=== PATIENT | male | born 1935 | race Caucasian/White ===

== ENCOUNTER → 2016-09-26 | Outpatient (CLI) | payer OTHER ==
[~2016-09-26] MED LIST: ZOFRAN ODT4 MG PO
== END ==
LOC: HYPER 07:07
DX: L89.322 Pressure ulcer of left buttock, stage 2 (principal); S41.101D Unspecified open wound of right upper arm, subsequent encounter; S51.801D Unspecified open wound of right forearm, subsequent encounter; I87.2 Venous insufficiency (chronic) (peripheral); H40.9 Unspecified glaucoma; X58.XXXD Exposure to other specified factors, subsequent encounter

== ENCOUNTER → 2017-04-05 | Outpatient (CLI) | payer OTHER | LOC: HYPER 11-21 17:04 | DX: S50.311A Abrasion of right elbow, initial encounter (principal); I87.2 Venous insufficiency (chronic) (peripheral); L89.322 Pressure ulcer of left buttock, stage 2; R60.0 Localized edema; M62.81 Muscle weakness (generalized); X58.XXXA Exposure to other specified factors, initial encounter; Y93.89 Activity, other specified; Y92.89 Other specified places as the place of occurrence of the external cause; Y99.8 Other external cause status ==

== ENCOUNTER → 2017-04-18 | Outpatient (CLI) | payer OTHER | LOC: HYPER 07:25 | DX: L89.322 Pressure ulcer of left buttock, stage 2 (principal); I87.2 Venous insufficiency (chronic) (peripheral); R60.0 Localized edema; M62.81 Muscle weakness (generalized); Z86.73 Personal history of transient ischemic attack (TIA), and cerebral infarction without residual deficits ==

== ENCOUNTER → 2017-05-31 | Outpatient (CLI) | payer OTHER | LOC: HYPER 05-16 13:15 | DX: L89.322 Pressure ulcer of left buttock, stage 2 (principal); I87.2 Venous insufficiency (chronic) (peripheral); M62.81 Muscle weakness (generalized) ==

== ENCOUNTER → 2017-07-08 | Outpatient (CLI) | payer OTHER | LOC: HYPER 07:20 | DX: L89.313 Pressure ulcer of right buttock, stage 3 (principal); E43 Unspecified severe protein-calorie malnutrition ==